=== PATIENT | male | born 1960 | race Caucasian/White ===

== ENCOUNTER 2020-08-17 12:40 | Outpatient (CLI) | payer OTHER | END 2020-08-17 12:41 | disposition home or self-care (01) | LOC: BICRAD 12:40 | PROVIDERS: ATTEND Internal Medicine Critical Care Medicine | DX: R06.00 Dyspnea, unspecified (principal); R91.8 Other nonspecific abnormal finding of lung field | CPT/HCPCS: 71046 ==

== ENCOUNTER 2022-11-07 01:36 | Emergency (ER) | payer OTHER ==
[2022-11-07] MEDS ORDERED: Acetaminophen 500 MG TAB ONE (05:19)
== END 2022-11-07 05:17 ==
LOC: ERS 01:36
DX: S40.022A Contusion of left upper arm, initial encounter (principal); S80.12XA Contusion of left lower leg, initial encounter; I10 Essential (primary) hypertension; W11.XXXA Fall on and from ladder, initial encounter